=== PATIENT | male | born 1945 | race Hispanic/Latino ===

== ENCOUNTER 2021-11-09 09:03 | Inpatient (IN) | payer MEDICARE ==
[2021-11-09] MEDS ORDERED: Lidocaine 1% MPF 2 ML VIAL ONE (09:22)
[2021-11-09] MEDS ORDERED: Famotidine/PF 20 mg/2ml Vial ONE (09:22)
[2021-11-09 09:55] LABS: Hemoglobin 9.4 g/dL (13.5-17.5)
[2021-11-09] MEDS ORDERED: Bupivacaine 0.25% HCL 30 ML VIAL ONE (10:05)
[2021-11-09] MEDS ORDERED: EPINEPHrine 1 MG/ML AMP ONE (10:05)
[2021-11-09 10:16] VITALS: BMI 29.7
[2021-11-09 10:16] LABS: ALT (SGPT) 15 U/L (8-55); AST (SGOT) 9 U/L (5-34); Albumin 3.9 g/dL (3.4-4.8); Alkaline Phosphatase 82 U/L (40-110); Anion Gap 14 mmol/L (10-20); BUN (Urea Nitrogen) 17 mg/dL (8.4-25.7); Bilirubin, Total 0.7 mg/dL (0.2-1.2); Calc. Creatinine Clearance 12 mL/min (70-130); Carbon Dioxide 32 mmol/L (23-31); Chloride 99 mmol/L (98-107); Globulin 3.4 g/dL (2.4-3.5); Glucose 106 mg/dL (83-110); Potassium 4.6 mmol/L (3.5-5.1); Protein, Total 7.3 g/dL (5.8-8.1); Sodium 140 mmol/L (136-145)
[2021-11-09] MEDS ORDERED: Fentanyl 250 MCG/5 ML VIAL ONE (10:19)
[2021-11-09] MEDS ORDERED: Phenylephrine 40 MG/NS 250 ML 250 ML ONE (10:20)
[2021-11-09] MEDS ORDERED: Albumin 5% 0 ML ONE (10:20)
[2021-11-09] MEDS ORDERED: Propofol 1,000 MG/100 ML VIAL IV ONE ×2 (10:21)
[2021-11-09] MEDS ORDERED: Lidocaine 2% PF 5 ML VIAL ONE (10:27)
[2021-11-09] MEDS ORDERED: Rocuronium Bromide 10 MG/ML (10ML VIAL) ONE (10:27)
[2021-11-09] MEDS ORDERED: ceFAZolin 2 GM/Dextrose 50 ML IVPB ONE (10:46)
[2021-11-09] MEDS ORDERED: Succinylcholine 200 MG/10 ml SYRINGE FS ONE (11:51)
[2021-11-09] MEDS ORDERED: PHENYLEPHRINE-NS 100 MCG/ML 10 ML SYRINGE ONE (11:51)
[2021-11-09] MEDS ORDERED: Ondansetron PF 4 MG/2 ML Vial ONE (15:13)
[2021-11-09] MEDS ORDERED: Metoclopramide HCl 10 MG/2 ML VIAL ONE (15:13)
[2021-11-09] MEDS ORDERED: ceFAZolin 2 GM/Dextrose 50 ML 2 GM in Premix Bag 1 BAG IVPB SCH (16:15)
[2021-11-09] MEDS ORDERED: HUMULIN R SC SCH (17:00)
[2021-11-09] MEDS ORDERED: Ondansetron ODT 4 MG TAB PO PRN (17:47)
[2021-11-09] MEDS: HYDROcodone/Acetaminophen 10/325 mg Tablet PO PRN (18:28)
[2021-11-09] MEDS ORDERED: Senokot S 8.6-50 MG TAB PO PRN (20:01)
[2021-11-09] MEDS: hydrALAZINE 25 MG TAB PO SCH (20:26)
[2021-11-09] MEDS: Aspirin 81 mg Enteric Coated Tablet PO SCH (20:26)
[2021-11-09] MEDS ORDERED: hydrALAZINE 25 MG TAB PO SCH (21:00)
[2021-11-10 04:31] LABS: #Eosinphils 0.2 10x3/uL (0.0-0.5); #Monocytes 0.7 10x3/uL (0.0-1.1); #Neutrophils 6.9 10x3/uL (1.5-8.4); %Basophils 0.3 % (0.0-2.0); %Eosinophils 1.7 % (0.0-6.0); %Lymphocytes 12.4 % (18.0-47.0); %Monocytes 8.2 % (0.0-10.0); %Neutrophils 77.1 % (40.0-75.0); Hemoglobin 7.3 g/dL (13.5-17.5); Mean Corpuscular HGB CONC 31.7 g/dL (32.0-36.0); Mean Corpuscular Hemoglobin 33.8 pg (27.0-33.0); Mean Corpuscular Volume 106.5 fl (81.2-95.1); Mean Platelet Volume 10.5 fl (7.4-10.4); Platelet Count 142 10x3/uL (150-450); RBC Distribution Width 18.4 % (11.5-14.5); Red Blood Cell (RBC) Count 2.16 10x6/uL (4.32-5.72)
[2021-11-10 04:38] LABS: Anion Gap 16 mmol/L (10-20); BUN (Urea Nitrogen) 22 mg/dL (8.4-25.7); Calc. Creatinine Clearance 10 mL/min (70-130); Calcium 8.9 mg/dL (7.8-10.44); Carbon Dioxide 28 mmol/L (23-31); Chloride 100 mmol/L (98-107); Glucose 113 mg/dL (83-110); Potassium 4.8 mmol/L (3.5-5.1); Sodium 139 mmol/L (136-145)
[2021-11-10] MEDS: HYDROcodone/Acetaminophen 10/325 mg Tablet PO PRN ×2 (04:45→20:59)
[2021-11-10 05:00] LABS: Macrocytosis SLIGHT = 6-15 cells (100X) (0-5/hpf); Ovalocytes SLIGHT = 2-5 cells (100X) (0-1/hpf)
[2021-11-10] MEDS ORDERED: EPOETIN ALFA-EPBX (ESRD) 4,000 UNIT/ML VIAL SC SCH (08:00)
[2021-11-10] MEDS: Polyethylene Glycol 3350 17 GM Packet PO SCH (09:01)
[2021-11-10] MEDS: hydrALAZINE 25 MG TAB PO SCH ×3 (09:01→20:52)
[2021-11-10] MEDS: Aspirin 81 mg Enteric Coated Tablet PO SCH ×2 (09:01→20:52)
[2021-11-10 11:49] LABS: Hemoglobin A1c 4.4 % (4.0-6.0)
[2021-11-11] MEDS: HYDROcodone/Acetaminophen 10/325 mg Tablet PO PRN ×3 (06:27→21:05)
[2021-11-11 08:02] LABS: #Eosinphils 0.3 10x3/uL (0.0-0.5); #Monocytes 0.7 10x3/uL (0.0-1.1); #Neutrophils 6.7 10x3/uL (1.5-8.4); %Basophils 0.4 % (0.0-2.0); %Eosinophils 3.3 % (0.0-6.0); %Lymphocytes 6.5 % (18.0-47.0); %Monocytes 8.2 % (0.0-10.0); %Neutrophils 81.1 % (40.0-75.0); Mean Corpuscular HGB CONC 31.9 g/dL (32.0-36.0); Mean Corpuscular Hemoglobin 34.1 pg (27.0-33.0); Mean Corpuscular Volume 106.8 fl (81.2-95.1); Mean Platelet Volume 10.2 fl (7.4-10.4); Platelet Count 101 10x3/uL (150-450); RBC Distribution Width 17.5 % (11.5-14.5); Red Blood Cell (RBC) Count 1.76 10x6/uL (4.32-5.72); White Blood Cell (WBC) Count 8.2 10x3/uL (3.5-10.5)
[2021-11-11 08:06] LABS: Anion Gap 18 mmol/L (10-20); BUN (Urea Nitrogen) 36 mg/dL (8.4-25.7); Calc. Creatinine Clearance 8 mL/min (70-130); Calcium 8.4 mg/dL (7.8-10.44); Carbon Dioxide 27 mmol/L (23-31); Chloride 96 mmol/L (98-107); Glucose 107 mg/dL (83-110); Potassium 5.9 mmol/L (3.5-5.1); Sodium 135 mmol/L (136-145)
[2021-11-11 08:17] LABS: Hypochromia SLIGHT = 6-15 cells (100X) (0-5/hpf)
[2021-11-11 08:18] LABS: Anisocytosis SLIGHT = 6-15 cells (100X) (0-5/hpf); Macrocytosis SLIGHT = 6-15 cells (100X) (0-5/hpf); Polychromasia SLIGHT = 2-3 cells (100X) (0-2/hpf)
[2021-11-11 08:19] LABS: Platelet Morphology Comment Appears Decreased
[2021-11-11] MEDS: hydrALAZINE 25 MG TAB PO SCH ×3 (08:55→23:36)
[2021-11-11] MEDS: Aspirin 81 mg Enteric Coated Tablet PO SCH ×2 (08:55→21:06)
[2021-11-11] MEDS: Polyethylene Glycol 3350 17 GM Packet PO SCH (08:56)
[2021-11-11] MEDS ORDERED: Heparin 10,000 UNITS/ 10 ML VIAL FS SCH (10:45)
[2021-11-11 11:18] LABS: Hep B Surf Ag Non-Reactive S/CO (NonReactive)
[2021-11-11 11:24] LABS: HBSAg Index 0.22 S/CO (0-0.99)
[2021-11-11] MEDS ORDERED: hydrALAZINE 20 MG/ML VIAL SLOW IVP PRN (13:48)
[2021-11-11 16:26] LABS: Hep C IgG Ab Non-Reactive (NonReactive); Hep C Index 0.09 S/CO (0-0.79)
[2021-11-11 18:16] LABS: Hep B Surf AB Indeterminate (NonReactive)
[2021-11-11 18:17] LABS: HBSAB Concentration 10.67 mIU/mL
[2021-11-11 18:18] LABS: Hep B Core Total Ab Reactive (NonReactive); Hep B Core Total Index 5.71 S/CO (0-0.79)
[2021-11-12 04:58] LABS: Hemoglobin 7.2 g/dL (13.5-17.5); Platelet Count 125 10x3/uL (150-450)
[2021-11-12 05:00] LABS: Anion Gap 16 mmol/L (10-20); BUN (Urea Nitrogen) 23 mg/dL (8.4-25.7); Calc. Creatinine Clearance 12 mL/min (70-130); Calcium 8.8 mg/dL (7.8-10.44); Carbon Dioxide 28 mmol/L (23-31); Chloride 96 mmol/L (98-107); Glucose 103 mg/dL (83-110); Potassium 4.8 mmol/L (3.5-5.1); Sodium 135 mmol/L (136-145)
[2021-11-12] MEDS: hydrALAZINE 25 MG TAB PO SCH ×2 (09:47→13:14)
[2021-11-12] MEDS: Polyethylene Glycol 3350 17 GM Packet PO SCH (09:47)
[2021-11-12] MEDS: Aspirin 81 mg Enteric Coated Tablet PO SCH (09:48)
[2021-11-12 12:30] VITALS: TEMP 97.3
[2021-11-12 16:40] VITALS: BP 142/60
== END 2021-11-12 17:00 | disposition home or self-care (01) | DRG 453 ==
LOC: CSHSDC 09:03 → CSHTELE 17:40
PROVIDERS: ADMIT Orthopaedic Surgery; ATTEND Orthopaedic Surgery
PROC: 0SG00AJ Fusion of Lumbar Vertebral Joint with Interbody Fusion Device, Posterior Approach, Anterior Column, Open Approach (ICD-10-PCS; principal; 2021-11-09)
PROC: 0SG0071 Fusion of Lumbar Vertebral Joint with Autologous Tissue Substitute, Posterior Approach, Posterior Column, Open Approach (ICD-10-PCS; 2021-11-09)
PROC: 01NB0ZZ Release Lumbar Nerve, Open Approach (ICD-10-PCS; 2021-11-09)
PROC: 4A1004G Monitoring of Central Nervous Electrical Activity, Intraoperative, Open Approach (ICD-10-PCS; 2021-11-09)
PROC: 30233N1 Transfusion of Nonautologous Red Blood Cells into Peripheral Vein, Percutaneous Approach (ICD-10-PCS; 2021-11-11)
PROC: 5A1D70Z Performance of Urinary Filtration, Intermittent, Less than 6 Hours Per Day (ICD-10-PCS; 2021-11-11)
DX: M48.061 Spinal stenosis, lumbar region without neurogenic claudication (principal); N18.6 End stage renal disease; I12.0 Hypertensive chronic kidney disease with stage 5 chronic kidney disease or end stage renal disease; M54.16 Radiculopathy, lumbar region; Z20.822 Contact with and (suspected) exposure to COVID-19; F17.210 Nicotine dependence, cigarettes, uncomplicated; E11.22 Type 2 diabetes mellitus with diabetic chronic kidney disease; I25.10 Atherosclerotic heart disease of native coronary artery without angina pectoris; M48.16 Ankylosing hyperostosis [Forestier], lumbar region; D63.1 Anemia in chronic kidney disease; M43.16 Spondylolisthesis, lumbar region; M41.86 Other forms of scoliosis, lumbar region; I35.0 Nonrheumatic aortic (valve) stenosis; Z79.4 Long term (current) use of insulin; Z90.49 Acquired absence of other specified parts of digestive tract; Z79.82 Long term (current) use of aspirin; Z99.2 Dependence on renal dialysis; Z79.899 Other long term (current) drug therapy
CPT/HCPCS: 36415; 36416; 36430; 72100; 80048; 80053; 83036; 85014; 85018; 85025; 85049; 86704; 86706; 86803; 86850; 86900; 86901; 87340; 90935; 94760; C1713; C1889; G0257; J0171; J0690; J1644; J2001; J2405; J2704; J2765; J3010; P9016; P9045; Q5105; S0020; S0028